=== PATIENT | female | born 1965 | race African-American/Black ===

== ENCOUNTER 2021-05-19 08:09 | Emergency (ER) | payer OTHER ==
[~2021-05-19] VITALS: Ht 170.2 cm; Wt 77.1 kg
[2021-05-19] MEDS ORDERED: HYDROcodone-ACET 5/325MG TAB PO ONE (10:00)
[2021-05-19 10:28] VITALS: BP 153/85
== END 2021-05-19 10:39 | disposition home or self-care (01) ==
LOC: EDBD 08:09 → ER 08:09
DX: S00.93XA Contusion of unspecified part of head, initial encounter (principal); M62.838 Other muscle spasm; M48.02 Spinal stenosis, cervical region; R51.9 Headache, unspecified; I10 Essential (primary) hypertension; Z98.890 Other specified postprocedural states; V49.59XA Passenger injured in collision with other motor vehicles in traffic accident, initial encounter; Y93.89 Activity, other specified; Y92.488 Other paved roadways as the place of occurrence of the external cause; Y99.8 Other external cause status
CPT/HCPCS: 70450; 72125